=== PATIENT | male | born 1955 | race Native Hawaiian/Other Pacific Islander ===

== ENCOUNTER 2020-10-07 08:34 | Outpatient (CLI) | payer BC ==
[~2020-10-07 08:34] MED LIST: AMOX875T8 PO; ASPIRIN LOW DOS81 MG OR; CODEINE OR; GUAIFENESIN OR; LEVO0.0218 PO; LISI20TA24 PO; SIMV20TA2 PO; ZOLP10TA2 PO
== END 2020-10-07 19:01 | disposition home or self-care (01) ==
LOC: CT 08:34
PROVIDERS: ATTEND Registered Nurse
DX: R10.84 Generalized abdominal pain (principal)
CPT/HCPCS: 36415; 82565; 84520; Q9963

== ENCOUNTER 2020-12-01 09:43 | Outpatient (CLI) | payer BC | END 2020-12-01 19:35 | disposition home or self-care (01) | LOC: US 09:43 | PROVIDERS: ATTEND Physician Assistant | DX: R10.13 Epigastric pain (principal); R10.811 Right upper quadrant abdominal tenderness; R11.10 Vomiting, unspecified; R63.4 Abnormal weight loss; R93.3 Abnormal findings on diagnostic imaging of other parts of digestive tract; Z80.0 Family history of malignant neoplasm of digestive organs; K43.9 Ventral hernia without obstruction or gangrene ==

== ENCOUNTER 2022-12-21 08:44 | Outpatient (CLI) | payer OTHER | END 2022-12-21 21:44 | disposition home or self-care (01) | LOC: CT 08:44 | PROVIDERS: ATTEND Nurse Practitioner | DX: R10.30 Lower abdominal pain, unspecified (principal) | CPT/HCPCS: 36415; 82565; 84520; Q9963 ==